=== PATIENT | male | born 1960 | race Caucasian/White ===

== ENCOUNTER 2022-10-06 08:07 | Inpatient (IN) ==
[2022-10-06] MEDS ORDERED: hydrALAZINE HCL 20 MG/ML VIAL IV STA ×2 (08:29→08:46)
[2022-10-06] MEDS ORDERED: OPTIRAY 320 125ml IV ONE (08:30)
[2022-10-06 08:37] LABS: Basophils # (auto) 0.05 K/uL (0-0.2); Basophils % (auto) 0.8 %; Eosinophils # (auto) 0.33 K/uL (0-0.50); Eosinophils % (auto) 5.3 %; Hematocrit (blood only) 38.7 % (42.0-52.0); Hemoglobin 12.7 g/dl (14.0-18.0); Immature Granulocytes # (auto) 0.01 K/uL (0.01-0.20); Immature Granulocytes % (auto) 0.2 %; Lymphocytes # (auto) 2.66 K/uL (1.2-3.4); Lymphocytes % (auto) 42.5 %; Mean Corpuscular Hgb Conc 32.8 g/dL (32.0-36.0); Mean Corpuscular Volume 85.4 fL (80.0-100.0); Mean Platelet Volume 11.4 fL (9.4-12.4); Monocytes # (auto) 0.39 K/uL (0.11-0.59); Monocytes % (auto) 6.2 %; Neutrophils # (auto) 2.82 K/uL (1.40-6.50); Platelet Count 196 K/uL (130-400); RDW Coefficient of Variation 12.4 % (11.5-14.5); RDW Standard Deviation 38.4 fL (36.4-46.3); Red Blood Count 4.53 M/uL (4.70-6.10); White Blood Count 6.26 K/ul (4.8-10.8)
--- NOTE | 2022-10-06 08:37 | Emergency Department Note ---
Impression & Plan HTN (hypertension), Stroke-like symptoms, Hypomagnesemia ED Provider Note ED Provider Note NAME: MYRNA [id number] NELLY AGE:62 SEX: Male : 1960 ARRIVES VIA: EMS INFORMANT: EMS, staff from facility ED PROVIDER(s): Breanna George DO CHIEF COMPLAINT: Stroke HPI: This is a 62-year-old male who presents via EMS due to concern for abrupt onset of strokelike symptoms this morning at 7 AM as witnessed by staff at the [facility] facility locally. They state patient appeared normal when he went into the bathroom at 7 AM and when he came back out he had right-sided weakness, facial droop, and slurred speech. Patient is primarily Bulgarian-speaking. Patient does have a history of hypertension and diabetes per the initial report. EMS reported initial blood sugar was mildly elevated and patient did indeed have strokelike symptoms. He was also noted to be hypertensive in route with a systolic of 187. EMS also reported patient was intermittently bradycardic. Med list accompanying the patient shows low-dose aspirin, no other anticoagulation. PAST MEDICAL HISTORY:See Below PAST SURGICAL HISTORY:See Below FAMILY HISTORY:See Below SOCIAL HISTORY:See Below HOME MEDICATIONS:See Below ALLERGIES:See Below VITALS:See Below PHYSICAL EXAMINATION: GENERAL: alert, well appearing, well nourished, no distress, non-toxic EYE EXAM: normal conjunctiva, PERRL and EOM's grossly intact OROPHARYNX: no exudate, no erythema, lips, buccal mucosa, and tongue normal and mucous membranes are moist NECK: supple, no nuchal rigidity, no adenopathy, non-tender LUNGS: Clear to auscultation. Normal chest wall mechanics, no w/r/r HEART: no murmurs, S1 normal and S2 normal ABDOMEN: abdomen soft, non-tender, normo-active bowel sounds, no masses, no rebound or guarding. BACK: Back is symmetrical on inspection and there is no deformity, no midline tenderness, no CVA tenderness. SKIN: no rashes, petechiae, orbruising UPPER EXTREMITIES: upper extremities are grossly normal. FROM, nml pulses b/l. LOWER EXTREMITIES: No pitting edema. FROM, nml pulses b/l. NEURO EXAM: Normal sensorium, cranial nerves II-XII grossly intact, normal speech, left facial droop,no movement of RUE and RLE. Gross sensation intact. No ataxia. NIHSS 7 Vital Signs: reviewed and remarkable Differential Diagnosis: Differential Diagnosis includes but is not limited to ischemic Stroke, hemorrhagic stroke, bells palsy, mass, neoplasm, migraine headache, seizure, subarachnoid hemorrhage, TIA, and transient global amnesia. MEDICAL DECISION MAKING: This is a 62-year-old male brought in by EMS who was made a stroke alert. Patient went urgently to CT. He was afebrile and noted to be markedly hypertensive. I discussed the case with the on-call [place] teleneurologist. We also utilized the iPad certified pest control technician as patient was Bulgarian-speaking only. Labs are drawn and sent, IV established, EKG performed interpreted me at bedside, patient monitored on telemetry. He was given IV hydralazine for his hypertension given his mild bradycardia additionally. Patient evaluated by stroke neurologist at bedside and after lengthy evaluation decision made to not give the patient TNK as he did not feel there was a clear acute onset of symptoms and patient was still hypertensive after 2 doses of hydralazine. Patient's symptoms were also improving since his arrival here. They recommended additional inpatient evaluation and management. Case discussed with the hospitalist. Consultation(s): 0815: Discussed with Dr. Brewer, [place] tele neuro. 0912: Discussed with Dr. Brewer. No TNK. Needs admitted for stroke and p ossible seizure work up. Symptoms seem to be improving. He states patient reported prior similar episode evaluated previously and chronic weakness which was worse recently even before this morning at 7 AM. Blood pressure continues to be elevated >180/100 additionally. 1005: DIscussed with CALISTA Lu, [facility] hospitalist service. ER Treatment Provided: See below 0832: IV hydralazine added due to persistent bradycardia and hypertension. Patient now is using his right side somewhat although still appears weak compared to the left. 0847: Patient still with elevated blood pressure after IV hydralazine. Currently being evaluated by [place] neurology via stroke cart. Diagnostics Interpreted By Me: -ECG: Sinus bradycardia at 55, normal axis, normal intervals, no acute ST/T wave changes -Cardiac Monitoring: An order was placed for continuous cardiac monitoring. The monitor shows a rate of 59 with sinus bradycardia rhythm. -Laboratory studies: As stated above and show below. -Imaging studies: X-ray Chest: A single view study of the chest was reviewed and was negative for cardiomegaly, focal infiltrate, effusion, pulmonary edema, or wide mediastinum. Triage Nursing Note Reviewed Prior/Outside Records Reviewed -med list Procedures: [] Critical Care: Critical care of 43 min performed to assess and manage high likelihood of life- threatening CVA, involving labs and imaging performed with assessment to evaluate strokelike symptoms and hypertension diagnosis with frequent reassessment. This time includes bedside time, treatment discussions with patient/family/consultants, documentation time and excludes procedure time. Past Med/Surg History Medical History (Updated 10/06/22 @ 16:49 by Breanna George DO) DMII (diabetes mellitus, type 2) HLD (hyperlipidemia) HTN (hypertension) Stroke Vision abnormalities Social History Smoking Status: Unknown if ever smoked Hx Alcohol Use: No Hx Substance Use: No Preferred Language: Miller Supervisor Required: Yes Beliefs That Will Affect Care: None Current Living Situation: Other Current Living Situation Comment: Inmate, [facility] Feels Safe at Home: Yes Allergies Allergies Allergy/AdvReac Type Severity Reaction Status Date / Time No Known Allergies Allergy Unverified 10/06/22 09:38 Home Meds Home Medications Medication Instructions Recorded Confirmed Aspirin Low-Strength 81 mg PO DAILY 10/06/22 10/06/22 amlodipine 2.5 mg tablet (Norvasc) 2.5 mg PO DAILY 10/06/22 10/06/22 clotrimazole 1 % topical cream 1 applic topical BID 10/06/22 10/06/22 (Lotrimin AF (clotrimazole)) enalapril maleate 10 mg tablet 10 mg PO DAILY 10/06/22 10/06/22 (Vasotec) metformin 1,000 mg tablet 1,000 mg PO BID 10/06/22 10/06/22 simvastatin 20 mg tablet (Zocor) 30 mg PO HS 10/06/22 10/06/22 Results & Data (ED) Vital Signs Vital Signs - 24 hr 10/06/22 08:15 10/06/22 08:54 10/06/22 08:29 Temperature 37.1 C Temperature Source Oral Pulse Rate 53 L 55 L 57 L Pulse Rate [Apical] Pulse Rate from SpO2 Sensor 54 L Pulse Rhythm Regular Pulse Strength Normal Respiratory Rate 20 20 Respiratory Effort / Characteristics Non-Labored Spontaneous Respiratory Depth Normal Respiratory Pattern Regular Blood Pressure 187/110 H Blood Pressure [Right Arm] Blood Pressure Mean 135 Blood Pressure Mean [Right Arm] Pulse Oximetry 99 98 Oxygen Delivery Method Room Air Sepsis Recent Fever Within 48 Hours No Sepsis New/Unexplained Change in Mental Status No Sepsis Action Taken by Nursing No Action Required 10/06/22 08:40 10/06/22 09:01 10/06/22 09:14 Temperature Temperature Source Pulse Rate 56 L 59 L Pulse Rate [Apical] Pulse Rate from SpO2 Sensor 58 L 60 Pulse Rhythm Pulse Strength Respiratory Rate 20 16 Respiratory Effort / Characteristics Respiratory Depth Respiratory Pattern Blood Pressure 199/90 H 223/86 H Blood Pressure [Right Arm] 155/82 H Blood Pressure Mean 126 131 Blood Pressure Mean [Right Arm] 106 Pulse Oximetry 98 99 Oxygen Delivery Method Sepsis Recent Fever Within 48 Hours Sepsis New/Unexplained Change in Mental Status Sepsis Action Taken by Nursing 10/06/22 10:15 Temperature Temperature Source Pulse Rate Pulse Rate [Apical] 72 Pulse Rate from SpO2 Sensor Pulse Rhythm Pulse Strength Respiratory Rate 20 Respiratory Effort / Characteristics Non-Labored Respiratory Depth Normal Respiratory Pattern Blood Pressure Blood Pressure [Right Arm] 148/82 H Blood Pressure Mean Blood Pressure Mean [Right Arm] 104 Pulse Oximetry 99 Oxygen Delivery Method Room Air Sepsis Recent Fever Within 48 Hours Sepsis New/Unexplained Change in Mental Status Sepsis Action Taken by Nursing Laboratory Data 10/06/22 08:24 10/06/22 08:24 Lab Results 10/06/22 10/06/22 10/06/22 Range/Units 08:24 08:24 08:24 WBC 6.26 (4.8-10.8) K/ul RBC 4.53 L (4.70-6.10) M/uL Hgb 12.7 L (14.0-18.0) g/dl Hct 38.7 L (42.0-52.0) % MCV 85.4 (80.0-100.0) fL MCH 28.0 (25.0-34.0) pg MCHC 32.8 (32.0-36.0) g/dL RDW Std Deviation 38.4 (36.4-46.3) fL RDW Coeff of Marjorie 12.4 (11.5-14.5) % Plt Count 196 (130-400) K/uL MPV 11.4 (9.4-12.4) fL Immature Gran % (Auto) 0.2 % Neut % (Auto) 45.0 % Lymph % (Auto) 42.5 % Kay % (Auto) 6.2 % Eos % (Auto) 5.3 % Baso % (Auto) 0.8 % Neut # (Auto) 2.82 (1.40-6.50) K/uL Lymph # (Auto) 2.66 (1.2-3.4) K/uL Kay # (Auto) 0.39 (0.11-0.59) K/uL Eos # (Auto) 0.33 (0-0.50) K/uL Baso # (Auto) 0.05 (0-0.2) K/uL Immature Gran # (Auto) 0.01 (0.01-0.20) K/uL PT 11.2 (9.0-12.0) Seconds INR 1.0 (0.9-1.1) APTT 28.2 (21.0-31.0) Seconds PTT Ratio 1.0 Sodium 134 L (136-145) mmol/L Potassium 4.1 (3.5-5.1) mmol/L Chloride 102 (98-107) mmol/L Carbon Dioxide 28 (21-32) mmol/L Anion Gap 4 (3-11) BUN 13 (6-23) mg/dl Creatinine 1.05 (0.6-1.4) mg/dl Est Cr Clr Drug Dosing Not Reportable Est GFR ( Amer) 89.0 ml/min Est GFR (Non-Af Amer) 76.8 ml/min BUN/Creatinine Ratio 12.4 (10-20) Glucose 201 H (70-99(Fasting)) mg/dl POC Glucose (70-99) mg/dl Calcium 8.3 L (8.6-10.3) mg/dl Magnesium 1.5 L (1.7-2.4) mg/dl Total Bilirubin 0.3 (0.2-1.0) mg/dl AST 12 L (13-39) U/L ALT 13 (7-52) U/L Alkaline Phosphatase 27 L (34-104) U/L Troponin I High Sens 6.1 (0-20) pg/ml Total Protein 6.1 (6.0-8.3) gm/dl Albumin 3.7 (3.4-5.0) gm/dl Globulin 2.4 L (2.5-4.0) gm/dl Albumin/Globulin Ratio 1.5 (0.9-2) SARS-CoV-2, RNA, NAAT (NEGATIVE) 10/06/22 10/06/22 Range/Units 08:46 09:56 WBC (4.8-10.8) K/ul RBC (4.70-6.10) M/uL Hgb (14.0-18.0) g/dl Hct (42.0-52.0) % MCV (80.0-100.0) fL MCH (25.0-34.0) pg MCHC (32.0-36.0) g/dL RDW Std Deviation (36.4-46.3) fL RDW Coeff of Marjorie (11.5-14.5) % Plt Count (130-400) K/uL MPV (9.4-12.4) fL Immature Gran % (Auto) % Neut % (Auto) % Lymph % (Auto) % Kay % (Auto) % Eos % (Auto) % Baso % (Auto) % Neut # (Auto) (1.40-6.50) K/uL Lymph # (Auto) (1.2-3.4) K/uL Kay # (Auto) (0.11-0.59) K/uL Eos # (Auto) (0-0.50) K/uL Baso # (Auto) (0-0.2) K/uL Immature Gran # (Auto) (0.01-0.20) K/uL PT (9.0-12.0) Seconds INR (0.9-1.1) APTT (21.0-31.0) Seconds PTT Ratio Sodium (136-145) mmol/L Potassium (3.5-5.1) mmol/L Chloride (98-107) mmol/L Carbon Dioxide (21-32) mmol/L Anion Gap (3-11) BUN (6-23) mg/dl Creatinine (0.6-1.4) mg/dl Est Cr Clr Drug Dosing Est GFR ( Amer) ml/min Est GFR (Non-Af Amer) ml/min BUN/Creatinine Ratio (10-20) Glucose (70-99(Fasting)) mg/dl POC Glucose 166 H (70-99) mg/dl Calcium (8.6-10.3) mg/dl Magnesium (1.7-2.4) mg/dl Total Bilirubin (0.2-1.0) mg/dl AST (13-39) U/L ALT (7-52) U/L Alkaline Phosphatase (34-104) U/L Troponin I High Sens (0-20) pg/ml Total Protein (6.0-8.3) gm/dl Albumin (3.4-5.0) gm/dl Globulin (2.5-4.0) gm/dl Albumin/Globulin Ratio (0.9-2) SARS-CoV-2, RNA, NAAT NEGATIVE (NEGATIVE) Administered Medications Heparin Sodium (Porcine) (Heparin Sod 5,000 Unit/0.5 Ml Vial) 5,000 units SQ Q8 KENZIE Stop: 11/05/22 13:59 Last Admin: 10/06/22 13:04 Dose: 5,000 units Documented By: CHARLENE Sodium Chloride (Nss 1000ml) 1,000 mls @ 125 mls/hr IV .Q8H KENZIE Stop: 11/05/22 08:29 Last Admin: 10/06/22 09:15 Dose: 125 mls/hr Documented By: DENG Insulin Aspart (Insulin Aspart Per Unit Charge) 0 units SC ACHS KENZIE Stop: 11/05/22 11:29 Last Admin: 10/06/22 13:03 Dose: 2 units Documented By: CHARLENE Co-signed By: KIMBERLYN Discontinued Medications Hydralazine HCl (Hydralazine Hcl 20 Mg/Ml Vial) 10 mg IV NOW STA Stop: 10/06/22 08:30 Last Admin: 10/06/22 08:30 Dose: 10 mg Documented By: DENG Hydralazine HCl (Hydralazine Hcl 20 Mg/Ml Vial) 10 mg IV NOW STA Stop: 10/06/22 08:47 Last Admin: 10/06/22 09:00 Dose: 10 mg Documented By: DENG Magnesium Sulfate/Dextrose (Magnesium Sulfate / D5w) 1 gm in 100 mls @ 50 mls/hr IV Q2H KENZIE Stop: 10/06/22 15:59 Last Admin: 10/06/22 14:41 Dose: 50 mls/hr Documented By: Infusion: 10/06/22 14:39 Dose: 0 mls/hr Documented By: Admin: 10/06/22 12:49 Dose: 50 mls/hr Documented By: Infusion: 10/06/22 12:49 Dose: 0 mls/hr Documented By: Admin: 10/06/22 11:42 Dose: 50 mls/hr Documented By: KTElsa Admin: 10/06/22 11:08 Dose: Not Given Documented By: DIAMANTE Ioversol (Optiray 320 125ml) 119 ml IV ONCE ONE Stop: 10/06/22 08:31 Last Admin: 10/06/22 08:17 Dose: 119 ml Documented By: BRKrystin Magnesium Sulfate/Dextrose (Magnesium Sulfate 1gm / D5w Bag) Confirm Administered Dose 1 gm IV .STK-MED ONE Stop: 10/06/22 10:33 Last Admin: 10/06/22 10:33 Dose: 1 gm Documented By: DIAMANTE Imaging Data Radiologist's Impression: Chest X-Ray 10/06/22 08:11 XR chest 1V portable CLINICAL HISTORY: neuro deficit, acute stroke suspected COMPARISON STUDY: No previous studies for comparison. FINDINGS: Lung volumes are mildly diminished. There is no pneumothorax or pleural effusion. Mild bibasilar opacities favor atelectasis. There is mild cardiomegaly without evidence for pulmonary edema. IMPRESSION: 1. Low lung volumes with mild bibasilar opacities suggestive of atelectasis. 2. Mild cardiomegaly. ACT 112: Negative or not required by law. Electronically signed by: José Montejo M.D. 10/06/2022 8:[address] 10/06/22 08:[address] DOSE: HISTORY: Right-sided weakness. neuro deficit, acute stroke suspected TECHNIQUE: Multiaxial CT images of the head were performed without the use of intravenous contrast. Automated exposure control was utilized for this study. A dose lowering technique was utilized adhering to the principles of ALARA. Comparison: None. Findings: Mild mucosal thickening within the ethmoid air cells, right sphenoid sinus, and right maxillary sinus. No fluid levels within the paranasal sinuses. The mastoid air cells are clear. The calvarium and skull base are intact. The ventricles and sulci are within normal limits. There is no mass, hematoma, midline shift, or acute infarct. Impression: No acute intracranial abnormality. ACT 112: Negative or not required by law. Electronically signed by: William Butt M.D. 10/06/2022 8:54 AM Head CTA 10/06/22 08:11 HEAD CTA HISTORY: Right-sided weakness. neuro deficit, acute stroke suspected TECHNIQUE: Multiaxial CT images of the head were performed following the intravenous administration of contrast to evaluate the major cerebral vessels. Maximum intensity projection images were also obtained. A dose lowering technique was utilized adhering to the principles of ALARA. COMPARISON: None. FINDINGS: There is no mass, hematoma, midline shift, or acute infarct. Visualized intracranial internal carotid arteries, distal vertebral arteries, and basilar artery are widely patent. There is no significant stenosis, occlusion, or aneurysm seen within the bilateral ACAs, MCAs, or disability manager. IMPRESSION: No significant stenosis, occlusion, or aneurysm within the [place] of [place]. ACT 112: Negative or not required by law. Electronically signed by: William Butt M.D. 10/06/2022 8:59 AM Neck CTA 10/06/22 08:11 CT ANGIOGRAPHY OF THE NECK WITH CONTRAST CLINICAL HISTORY: neuro deficit, acute stroke suspected. Right-sided weakness. COMPARISON STUDY: No previous studies for comparison. Technique: CT angiography of the carotid and vertebral arteries was obtained using Optiray and 3D reconstruction on an independent workstation. NASCET criteria was utilized. Automated exposure control was utilized for the study. A dose lowering technique was utilized adhering to the principles of ALARA. CT DOSE: 1115.03 mGy.cm Findings: Visualized portions of the lung apices are unremarkable. There is no cervical lymphadenopathy. There is no cervical spine fracture. The bilateral common carotid, cervical internal carotid and vertebral arteries are patent. There is no stenosis or dissection within these vessels. Mild irregularity of the proximal bilateral internal carotid arteries is likely due to a therosclerosis. There is no aneurysm within the neck. CTA of the head will be reported separately. IMPRESSION: No stenosis or dissection within the bilateral common carotid, cervical internal carotid and vertebral arteries. ACT 112: Negative or not required by law. Electronically signed by: José Montejo M.D. 10/06/2022 8:49 AM Discharge Plan Visit Data Chief Complaint: Stroke Alert Stated Complaint: STROKE SX ED Provider: Breanna George Discharge Problem: HTN (hypertension), Stroke-like symptoms, Hypomagnesemia Patient Disposition: Admitted As Inpatient Discharge Instructions Interventions: ED Discharge Assessment Last Done: 10/06/22 11:09
--- NOTE | 2022-10-06 08:40 | XRay Report ---
XR chest 1V portable CLINICAL HISTORY: neuro deficit, acute stroke suspected COMPARISON STUDY: No previous studies for comparison. FINDINGS: Lung volumes are mildly diminished. There is no pneumothorax or pleural effusion. Mild biba silar opacities favor atelectasis. There is mild cardiomegaly without evidence for pulmonary edema. IMPRESSION: 1. Low lung volumes with mild bibasilar opacities suggestive of atelectasis. 2. Mild cardiomegaly. ACT 112: Negative or not required by law. Electronically signed by: José Montejo M.D. 10/06/2022 8:39 AM
--- NOTE | 2022-10-06 08:51 | CT Scan Report ---
CT ANGIOGRAPHY OF THE NECK WITH CONTRAST CLINICAL HISTORY: neuro deficit, acute stroke suspected. Right-sided weakness. COMPARISON STUDY: No previous studies for comparison. Technique: CT angiography of the carotid and vertebral arteries was obtained using Optiray and 3D rec onstruction on an independent workstation. NASCET criteria was utilized. Automated exposure control was utilized for the study. A dose lowering technique was utilized adhering to the principles of ALA RA. CT DOSE: 1115.03 mGy.cm Findings: Visualized portions of the lung apices are unremarkable. There is no cervical lymphadenopat hy. There is no cervical spine fracture. The bilateral common carotid, cervical internal carotid and vertebral arteries are patent. There is no stenosis or dissection within these vessels. Mild irregula rity of the proximal bilateral internal carotid arteries is likely due to atherosclerosis. There is n o aneurysm within the neck. CTA of the head will be reported separately. IMPRESSION: No stenosis or dissection within the bilateral common carotid, cervical internal carotid and vertebral arteries. ACT 112: Negative or not required by law. Electronically signed by: José Montejo M.D. 10/06/2022 8:49 AM
--- NOTE | 2022-10-06 08:55 | CT Scan Report ---
HEAD CT NONCONTRAST CT DOSE: HISTORY: Right-sided weakness. neuro deficit, acute stroke suspected TECHNIQUE: Multiaxial CT images of the head were performed without the use of intravenous contrast. A utomated exposure control was utilized for this study. A dose lowering technique was utilized adheri ng to the principles of ALARA. Comparison: None. Findings: Mild mucosal thickening within the ethmoid air cells, right sphenoid sinus, and right maxil darin sinus. No fluid levels within the paranasal sinuses. The mastoid air cells are clear. The calvar ium and skull base are intact. The ventricles and sulci are within normal limits. There is no mass, h ematoma, midline shift, or acute infarct. Impression: No acute intracranial abnormality. ACT 112: Negative or not required by law. Electronically signed by: William Butt M.D. 10/06/2022 8:54 AM
[2022-10-06 08:59] LABS: Alanine Aminotransferase 13 U/L (7-52); Albumin Globulin Ratio 1.5 (0.9-2); Albumin Level 3.7 gm/dl (3.4-5.0); Alkaline Phosphatase 27 U/L (34-104); Anion Gap 4 (3-11); Aspartate Aminotransferase 12 U/L (13-39); BUN Creatinine Ratio 12.4 (10-20); Bilirubin,Total 0.3 mg/dl (0.2-1.0); Blood Urea Nitrogen 13 mg/dl (6-23); Calcium 8.3 mg/dl (8.6-10.3); Carbon Dioxide 28 mmol/L (21-32); Chloride 102 mmol/L (98-107); Est GFR (Non-African American) 76.8 ml/min; Globulin 2.4 gm/dl (2.5-4.0); Glucose 201 mg/dl (70-99(Fasting)); Magnesium 1.5 mg/dl (1.7-2.4); Potassium 4.1 mmol/L (3.5-5.1); Sodium 134 mmol/L (136-145); Total Protein 6.1 gm/dl (6.0-8.3)
[2022-10-06 09:00] LABS: Partial Thromboplastin Time 28.2 Seconds (21.0-31.0); Prothrombin Time 11.2 Seconds (9.0-12.0)
--- NOTE | 2022-10-06 09:01 | CT Scan Report ---
HEAD CTA HISTORY: Right-sided weakness. neuro deficit, acute stroke suspected TECHNIQUE: Multiaxial CT images of the head were performed following the intravenous administration o f contrast to evaluate the major cerebral vessels. Maximum intensity projection images were also obta ined. A dose lowering technique was utilized adhering to the principles of ALARA. COMPARISON: None. FINDINGS: There is no mass, hematoma, midline shift, or acute infarct. Visualized intracranial help desk intern al carotid arteries, distal vertebral arteries, and basilar artery are widely patent. There is no sig nificant stenosis, occlusion, or aneurysm seen within the bilateral ACAs, MCAs, or accounting lecturer. IMPRESSION: No significant stenosis, occlusion, or aneurysm within the [place]. ACT 112: Negative or not required by law. Electronically signed by: William Butt M.D. 10/06/2022 8:59 AM
[2022-10-06 09:05] LABS: Troponin I High Sensitivity 6.1 pg/ml (0-20)
[2022-10-06] MEDS: SODIUM CHLORIDE 0.9% 1000ML 1,000 ML IV SCH ×3 (09:15→20:20)
[2022-10-06] MEDS ORDERED: MAGNESIUM SULFATE 1GM / D5W BAG IV ONE (10:32)
--- NOTE | 2022-10-06 10:46 | History & Physical Report ---
Date of Service October 06, 2022 Assessment & Plan (1) Stroke-like symptoms: Plan: Acute onset with history of previous CVA reported by patient - Not a thrombolytic candidate secondary to time of onset - CT, CTA of head and neck negative for LVOT or stenosis or bleed - obtain MRI - obtain ECHO with bubble study - Permissive HTN - Telemetry overnight evaluate for dysrhythmia - Dysphagia screening and then ADAT - PT/OT consultation - Continue with ASA - For his symptoms of facial twitching and muscle weakness- will replete magnesium, obtain iCA, check TSH - Continue with neurological examinations (2) Hypomagnesemia: Plan: Replete follow other electrolytes (3) HTN (hypertension): Plan: Allow for permissive HTN await telestroke consultation recommendations - Received Hydralazine in EMD with appropriate response (4) DMII (diabetes mellitus, type 2): Plan: Insulin sliding scale - Advance diet to carb consistent once passes swallow screen - CF 20 with no carb coverage- adjust to keep BG <180 (5) HLD (hyperlipidemia): Plan: Continue statin- lipid panel in morning- adjust therapy as warranted History of Present Illness Primary Care Provider: Arnold Farooq, DO 62 YOM that is currently residing at [facility] shelter facility. He reports feeling well until last night- and even went for a run yesterday (10/05/22) Patient was brought in to the [facility] today by [facility] guards for reports of new onset right sided facial droop and right sided weakness. Patient presented to the EMD hyper tensive as well >200. Patient was stroke alerted and had CT scan of head as well as CTA of the head and neck performed. He was deemed not a candidate for TNKase secondary to time last known well. Overall the patient reports that he noticed himself becoming more weak last evening and this morning noticed his right side of his face tingling and twitching. He also notes that he had weakness and decreased sensation to his right leg. The weakness and sensation changes to his right leg and arm- he reports as starting last evening. Patient reports that he has had a stroke ~ 2 years ago and has had MRI and imaging prior. CUrrently patient is with right facial droop, right arm and right leg weakness, decreased sensation on right arm and leg, and ataxia. He has electrolyte derangements on his BMP as well. Will admit patient for continued stroke work up, treat his electrolyte disorders, obtain ECHO and follow for any seizure like activity. Patient CODE Status: FULL COVID: NEGATIVE Allergies Allergy/AdvReac Type Severity Reaction Status Date / Time No Known Allergies Allergy Unverified 10/06/22 09:38 Home Medications Medication Instructions Recorded Confirmed Type Aspirin Low-Strength 81 mg PO DAILY 10/06/22 10/06/22 History amlodipine 2.5 mg tablet (Norvasc) 2.5 mg PO DAILY 10/06/22 10/06/22 History clotrimazole 1 % topical cream 1 applic topical BID 10/06/22 10/06/22 History (Lotrimin AF (clotrimazole)) enalapril maleate 10 mg tablet 10 mg PO DAILY 10/06/22 10/06/22 History (Vasotec) metformin 1,000 mg tablet 1,000 mg PO BID 10/06/22 10/06/22 History simvastatin 20 mg tablet (Zocor) 30 mg PO HS 10/06/22 10/06/22 History Past Med/Surg History Medical History (Updated 10/06/22 @ 16:49 by Breanna George DO) DMII (diabetes mellitus, type 2) HLD (hyperlipidemia) HTN (hypertension) Stroke Vision abnormalities Social History Smoking Status: Unknown if ever smoked Hx Alcohol Use: No Hx Substance Use: No Preferred Language: Lithuanian Communication Tools: IPad Hard Hat Diver Required: Yes Beliefs That Will Affect Care: None Current Living Situation: Other Current Living Situation Comment: Inmate, [facility] Feels Safe at Home: Yes Review of Systems Review of Systems: REVIEW OF SYSTEMS: Constitutional: No fever, sweats or chills Eyes: (+) chronic blurry vision, No diplopia, no worsening ENT: normal hearing, no trouble swallowing Respiratory: No cough, sputum, dyspnea at rest or on exertion Cardiovascular: No chest pain, tightness or palpitations Abdomen: No pain, nausea, vomiting, diarrhea or constipation Musculoskeletal: No joint pain, calf pain, swelling Neurologic: (+) weakness, numbness/tingling Physical Exam Physical Exam: PHYSICAL EXAM: General: awake, alert, no apparent distress Head: Normocephalic, atraumatic Neuro: AAO x 3, speech clear and appropriate, right sided facial droop, PEERLA, peripheral vision intact, decreased sensation on right arm and leg, strength upper 5/5 bilaterally, 4/5 on lower with right leg- being weaker- however able to hold in air for 5 seconds with no drift, + ataxia with heel to coe and finger to nose- NIHSS- 4 Chest: equal rise and fall of the chest, no accessory muscle use, no heaves or thirlls, Clear to auscultation, on room air, Cardiac: Regular rate and rhythm, telemetry reviewed- NSR, skin warm dry, cap refill <3 seconds, peripheral pusles +2 no JVD, no murmur, no JVD, no edema GI: NABS x 4 quadrants, soft, nontender to palpation, no rebound, guarding or tenderness : Spontaneously voiding, no pain, no CVA tenderness, Extremities: Normal inspection, no peripheral edema or erythema, calfs nontender to palpation Psych: Normal mood and affect Skin: no rash or erythema Results & Data Results & Data Vital Signs (Past 12 Hours) Vital Signs Temp Pulse Pulse Resp BP BP Pulse Ox 10/06/22 10:15 72 20 148/82 H 99 10/06/22 09:14 155/82 H 10/06/22 09:01 59 L 16 223/86 H 99 10/06/22 08:40 56 L 20 199/90 H 98 10/06/22 08:29 57 L 20 187/110 H 98 10/06/22 08:54 55 L 10/06/22 08:15 37.1 C 53 L 20 99 O2 Del Method 10/06/22 10:15 Room Air 10/06/22 09:14 10/06/22 09:01 10/06/22 08:40 10/06/22 08:29 10/06/22 08:54 10/06/22 08:15 Room Air Laboratory Results Abnormal lab results 10/06/22 10/06/22 10/06/22 Range/Units 08:24 08:24 08:46 RBC 4.53 L (4.70-6.10) M/uL Hgb 12.7 L (14.0-18.0) g/dl Hct 38.7 L (42.0-52.0) % Sodium 134 L (136-145) mmol/L Glucose 201 H (70-99(Fasting)) mg/dl POC Glucose 166 H (70-99) mg/dl Calcium 8.3 L (8.6-10.3) mg/dl Magnesium 1.5 L (1.7-2.4) mg/dl AST 12 L (13-39) U/L Alkaline Phosphatase 27 L (34-104) U/L Globulin 2.4 L (2.5-4.0) gm/dl Diagnostic Findings Chest X-Ray 10/06/22 08:11 XR chest 1V portable CLINICAL HISTORY: neuro deficit, acute stroke suspected COMPARISON STUDY: No previous studies for comparison. FINDINGS: Lung volumes are mildly diminished. There is no pneumothorax or pleural effusion. Mild bibasilar opacities favor atelectasis. There is mild cardiomegaly without evidence for pulmonary edema. IMPRESSION: 1. Low lung volumes with mild bibasilar opacities suggestive of atelectasis. 2. Mild cardiomegaly. ACT 112: Negative or not required by law. Electronically signed by: José Montejo M.D. 10/06/2022 8:[address] 10/06/22 08:[address] DOSE: HISTORY: Right-sided weakness. neuro deficit, acute stroke suspected TECHNIQUE: Multiaxial CT images of the head were performed without the use of intravenous contrast. Automated exposure control was utilized for this study. A dose lowering technique was utilized adhering to the principles of ALARA. Comparison: None. Findings: Mild mucosal thickening within the ethmoid air cells, right sphenoid sinus, and right maxillary sinus. No fluid levels within the paranasal sinuses. The mastoid air cells are clear. The calvarium and skull base are intact. The ventricles and sulci are within normal limits. There is no mass, hematoma, midline shift, or acute infarct. Impression: No acute intracranial abnormality. ACT 112: Negative or not required by law. Electronically signed by: William Butt M.D. 10/06/2022 8:54 AM Head CTA 10/06/22 08:11 HEAD CTA HISTORY: Right-sided weakness. neuro deficit, acute stroke suspected TECHNIQUE: Multiaxial CT images of the head were performed following the intravenous administration of contrast to evaluate the major cerebral vessels. Maximum intensity projection images were also obtained. A dose lowering technique was utilized adhering to the principles of ALARA. COMPARISON: None. FINDINGS: There is no mass, hematoma, midline shift, or acute infarct. Visualized intracranial internal carotid arteries, distal vertebral arteries, and basilar artery are widely patent. There is no significant stenosis, occlusion, or aneurysm seen within the bilateral ACAs, MCAs, or director of midwifery/staff midwife. IMPRESSION: No significant stenosis, occlusion, or aneurysm within the [place]. ACT 112: Negative or not required by law. Electronically signed by: William Butt M.D. 10/06/2022 8:59 AM Neck CTA 10/06/22 08:11 CT ANGIOGRAPHY OF THE NECK WITH CONTRAST CLINICAL HISTORY: neuro deficit, acute stroke suspected. Right-sided weakness. COMPARISON STUDY: No previous studies for comparison. Technique: CT angiography of the carotid and vertebral arteries was obtained using Optiray and 3D reconstruction on an independent workstation. NASCET criteria was utilized. Automated exposure control was utilized for the study. A dose lowering technique was utilized adhering to the principles of ALARA. CT DOSE: 1115.03 mGy.cm Findings: Visualized portions of the lung apices are unremarkable. There is no cervical lymphadenopathy. There is no cervical spine fracture. The bilateral common carotid, cervical internal carotid and vertebral arteries are patent. There is no stenosis or dissection within these vessels. Mild irregularity of the proximal bilateral internal carotid arteries is likely due to atherosclerosis. There is no aneurysm within the neck. CTA of the head will be reported separately. IMPRESSION: No stenosis or dissection within the bilateral common carotid, cervical internal carotid and vertebral arteries. ACT 112: Negative or not required by law. Electronically signed by: José Montejo M.D. 10/06/2022 8:49 AM Medications Administered Home Medications Aspirin Low-Strength 81 mg PO DAILY 10/06/22 [History Confirmed 10/06/22] amlodipine 2.5 mg tablet (Norvasc) 2.5 mg PO DAILY 10/06/22 [History Confirmed 10/06/22] clotrimazole 1 % topical cream (Lotrimin AF (clotrimazole)) 1 applic topical BID 10/06/22 [History Confirmed 10/06/22] enalapril maleate 10 mg tablet (Vasotec) 10 mg PO DAILY 10/06/22 [History Confirmed 10/06/22] metformin 1,000 mg tablet 1,000 mg PO BID 10/06/22 [History Confirmed 10/06/22] simvastatin 20 mg tablet (Zocor) 30 mg PO HS 10/06/22 [History Confirmed 10/06/22] Active Medications Sodium Chloride (Nss 1000ml) 1,000 mls @ 125 mls/hr IV .Q8H KENZIE Stop: 11/05/22 08:29 Last Admin: 10/06/22 09:15 Dose: 125 mls/hr Magnesium Sulfate/Dextrose (Magnesium Sulfate / D5w) 1 gm in 100 mls @ 50 mls/hr IV Q2H KENZIE Stop: 10/06/22 15:59 Sodium Chloride (Nss 1000ml) 1,000 mls @ 125 mls/hr IV .Q8H KENZIE Stop: 11/05/22 08:29 Last Admin: 10/06/22 09:15 Dose: 125 mls/hr Documented By: DENG Discontinued Medications Hydralazine HCl (Hydralazine Hcl 20 Mg/Ml Vial) 10 mg IV NOW STA Stop: 10/06/22 08:30 Last Admin: 10/06/22 08:30 Dose: 10 mg Documented By: DENG Hydralazine HCl (Hydralazine Hcl 20 Mg/Ml Vial) 10 mg IV NOW STA Stop: 10/06/22 08:47 Last Admin: 10/06/22 09:00 Dose: 10 mg Documented By: DENG Ioversol (Optiray 320 125ml) 119 ml IV ONCE ONE Stop: 10/06/22 08:31 Last Admin: 10/06/22 08:17 Dose: 119 ml Documented By: KARMEN Magnesium Sulfate/Dextrose (Magnesium Sulfate 1gm / D5w Bag) Confirm Administered Dose 1 gm IV .STK-MED ONE Stop: 10/06/22 10:33 Last Admin: 10/06/22 10:33 Dose: 1 gm Documented By: ES ECG Additional Comments: Sinus bradycardia Possible Left atrial enlargement Minimal voltage criteria for LVH, may be normal variant ( Arvin product ) Septal infarct , age undetermined Abnormal ECG No previous ECGs available Code Status & VTE Plan Code Status FULL VTE Prophylaxis Plan VTE Prophylaxis will be ordered: Yes Supervising Physician Co-Signing Physician Notes I personally saw and examined the patient. I verified all leach points and agree with RABIA Coleman with the following exceptions and/or additions: 62 year old male presents to the ER with right sided weakness, facial droop and numbness. Patient seen with iPad intepretor. Symptoms now resolved when seen. On discussion of abdominal pain on exam he reports long standing gastritis for which he uses as need Pepto-Bismol. O/E A&Ox3, HS RRR, no murmurs, Chest CTAB, Abdo epigastric tenderness without guarding or rebound, CN 2-> 12 intact, no facial droop, no pronator drift, extremity weakness or change in sensation. No calf pain or swelling. A/P Stroke like symptoms - no stroke on brain MRI, possible TIA vs recrudescence of prior stroke (reportedly had same symptoms 4 months ago). Alternatively complex migraine although he has no history of migraines making this less likely. PFO/ASD noted on TTE therefore will get US venous doppler of both legs. Gastritis - epigastric pain on exam, takes regular Pepto-Bismol. Recommend start PPI. PG Care Time/CCT Total # of Minutes Spent Total Time Spent with Patient: Total time spent is greater than 50% in coordination of care (as documented) at patient's floor/unit and/or counseling patient: Coding Level of Care Code 75384 INT INP/OBS CARE 3/75MIN Diagnoses Stroke-like symptoms R29.90 Hypomagnesemia E83.42 HTN (hypertension) I10 DMII (diabetes mellitus, type 2) E11.9 HLD (hyperlipidemia) E78.5
[2022-10-06] MEDS: MAGNESIUM SULFATE / D5W 1 GM/100 ML BAG IV SCH ×4 (11:08→14:41)
[2022-10-06] MEDS ORDERED: ACETAMINOPHEN 325 MG TAB PO PRN (11:19)
[2022-10-06] MEDS ORDERED: GLUCAGON FOR INJ 1 MG VIAL SQ PRN (11:19)
[2022-10-06] MEDS ORDERED: DEXTROSE 50% 50 ML SYRINGE IV PRN (11:19)
[2022-10-06] MEDS ORDERED: CARBOHYDRATES FOR HYPOGLYCEMIA PO PRN (11:19)
[2022-10-06] MEDS ORDERED: GLUCOSE 40% GEL 15 GM TUBE PO PRN (11:19)
[2022-10-06] MEDS ORDERED: GLUCOSE 10 TAB/TUBE PO PRN (11:19)
[2022-10-06] MEDS ORDERED: PHARMACIST DISCHARGE MED REC CONSULT PRN (11:19)
[2022-10-06 11:42] LABS: Amphetamines+Metham, Urine Neg (Neg); Barbiturates, Urine Neg (Neg); Benzodiazepine, Urine Neg (Neg); Cocaine, Urine Neg (Neg); MDMA (Ecstacy), Urine Neg (Neg); Methadone, Urine Neg (Neg); Opiate, Urine Neg (Neg); Phencyclidine, Urine Neg (Neg)
[2022-10-06] MEDS: INSULIN ASPART PER UNIT CHARGE SC SCH ×3 (13:03→21:02)
[2022-10-06] MEDS: HEPARIN SOD 5,000 UNIT/0.5 ML VIAL SQ SCH ×2 (13:04→20:16)
--- NOTE | 2022-10-06 18:55 | XCELERA ---
[id number]
[2022-10-06] MEDS: CLOTRIMAZOLE 1% CR 15 GM TUBE TOP SCH (20:17)
[2022-10-06] MEDS ORDERED: SIMVASTATIN 10 MG TAB PO SCH (21:00)
--- NOTE | 2022-10-06 21:08 | Magnetic Resonance Report ---
Exam(s): MRI HEAD Without Contrast EXAM: MR Head Without Intravenous Contrast CLINICAL HISTORY: Reason for exam: stroke evaluation. TECHNIQUE: Magnetic resonance images of the head/brain without intravenous contrast in multiple planes. COMPARISON: CT head 10/06/22 FINDINGS: Brain: No diffusion restriction to suggest acute cerebral ischemia. No acute intracranial hemorrhage. No mass-effect or midline shift. Minimal scattered chronic small vessel ischemic disease. Parenchymal volume is normal for age. Ventricles: Unremarkable. No hydrocephalus. Bones/joints: Unremarkable. Sinuses: Mild pansinus mucosal thickening. No acute sinusitis. Mastoid air cells: Clear mastoid air cells. Orbits: Unremarkable as visualized. IMPRESSION: No acute findings in the head/brain. Electronically signed by: Benito Coyne M.D. 10/06/22 21:07 PM
[2022-10-06] MEDS: PANTOprazole 40 MG TAB PO SCH (22:19)
--- NOTE | 2022-10-07 02:04 | Ultrasound Report ---
Exam(s): US VENOUS BILATERAL LOWER EXTREMITIES EXAM: US Duplex Bilateral Lower Extremities Veins CLINICAL HISTORY: Reason for exam: CVA with PFO. TECHNIQUE: Real-time duplex ultrasound scan of the bilateral lower extremity veins integrating B-mode two-dimensional vascular structure, Doppler spectral analysis, color flow Doppler imaging and compression. COMPARISON: No relevant prior studies available. FINDINGS: Right deep veins: Unremarkable. No DVT in the right common femoral, femoral, proximal deep femoral or popliteal veins. The veins demonstrate normal color flow, are normally compressible, with normal phasic flow and/or augmentation response. Right superficial veins: Unremarkable. No thrombus in the visualized right great saphenous vein. Left deep veins: Unremarkable. No DVT in the left common femoral, femoral, proximal deep femoral or popliteal veins. The veins demonstrate normal color flow, are normally compressible, with normal phasic flow and/or augmentation response. Left superficial veins: Unremarkable. No thrombus in the visualized left great saphenous vein. Soft tissues: No acute findings. IMPRESSION: No evidence of acute DVT. Electronically signed by: Benito Coyne M.D. 10/07/22 02:03 AM
[2022-10-07] MEDS: HEPARIN SOD 5,000 UNIT/0.5 ML VIAL SQ SCH ×2 (06:11→13:07)
[2022-10-07 06:54] LABS: Basophils # (auto) 0.06 K/uL (0-0.2); Eosinophils # (auto) 0.31 K/uL (0-0.50); Hematocrit (blood only) 40.5 % (42.0-52.0); Hemoglobin 13.5 g/dl (14.0-18.0); Immature Granulocytes # (auto) 0.02 K/uL (0.01-0.20); Immature Granulocytes % (auto) 0.3 %; Lymphocytes # (auto) 2.35 K/uL (1.2-3.4); Mean Corpuscular Hgb Conc 33.3 g/dL (32.0-36.0); Mean Corpuscular Volume 83.9 fL (80.0-100.0); Mean Platelet Volume 11.5 fL (9.4-12.4); Monocytes # (auto) 0.31 K/uL (0.11-0.59); Neutrophils # (auto) 3.14 K/uL (1.40-6.50); Neutrophils % (auto) 50.7 %; Platelet Count 213 K/uL (130-400); RDW Coefficient of Variation 12.4 % (11.5-14.5); RDW Standard Deviation 37.6 fL (36.4-46.3); Red Blood Count 4.83 M/uL (4.70-6.10); White Blood Count 6.19 K/ul (4.8-10.8)
[2022-10-07 07:17] LABS: BUN Creatinine Ratio 10.9 (10-20); Calcium 8.2 mg/dl (8.6-10.3); Chol HDL Ratio 3.1 (0-5); Creatinine Clr Calc Pharmacy 79.3 ml/min; Est GFR (African American) 104.4 ml/min; Est GFR (Non-African American) 90.1 ml/min; Phosphorus 3.5 mg/dl (2.5-4.9); Potassium 3.6 mmol/L (3.5-5.1)
[2022-10-07] MEDS: CLOTRIMAZOLE 1% CR 15 GM TUBE TOP SCH (08:31)
[2022-10-07] MEDS: PANTOprazole 40 MG TAB PO SCH (08:31)
[2022-10-07] MEDS: INSULIN ASPART PER UNIT CHARGE SC SCH ×3 (08:32→16:38)
[2022-10-07] MEDS ORDERED: ASPIRIN 81 MG ECTAB PO SCH (09:00)
--- NOTE | 2022-10-07 10:14 | Neurology Consultation ---
Date of Consultation October 07, 2022 Assessment & Plan (1) Stroke-like symptoms: (2) HTN (hypertension): (3) Hypomagnesemia: Plan patient had an episode of right-sided weakness of a significant degree, with no evidence of stroke on CT or MRI. Neurologic examination currently is nonfocal without meningeal signs or obvious cephalopathy. NIH Stroke Scale equals 0 He had significant hypertension on admission as well as some hypomagnesemia and hypocalcemia. These types of abnormalities can be associated with transient focal neurologic deficits. Therefore the history is consistent with a TIA in association with significant hypertension. Echocardiogram had a right to left shunt ( ASD versus PFO). The patient does have mild old small vessel ischemic disease with multiple risk factors for stroke including hypertension, diabetes, tobacco use, and a history of dyslipidemia. Currently, however, his lipid profile parameters are normal. Recommendations: 1. Control blood pressure as you are doing keeping mean arterial pressure somewhere around 95-100. 2. discontinue 81 mg aspirin and initiate 75 mg clopidogrel daily. 3. cardiology decide if anything further needs to be done about the echocardiogram finding ( PFO versus ASD). there is no indication for anticoagul ation from a neurologic standpoint. 4. keep simvastatin 30 mg daily. Overall, I spent a total of 75 minutes with the case including review of records, review of CT and MRI films, report generation, direct evaluation the patient at bedside, and discussing the case with the patient and RN at bedside, and Dr. Maurer including differential diagnosis and treatment options. History of Present Illness Reason for Consultation: Patient is a 62 year old who I was asked to see at the request of Dr. Maurer, for neurologic consultation regarding probable TIA. Requesting Physician: Dr. Maurer Attending Physician: David Maurer History of Present Illness Patient speaks no Telugu and I had to use a translating service for the entire history and physical. He has a history of hypertension and diabetes for many years. He denies tobacco or alcohol use. Patient tells me that 2 years ago he had an episode of right-sided weakness including face arm and leg and up in the hospital "for 2 months". He got better and he has been on 81 mg aspirin tablet since. He claims that over the last week he has had intermittent right-sided weakness. On October 06 early in the morning he went to the bathroom and was witnessed to have a right facial droop and right arm and leg weakness. He was brought to the emergency room October 06 at 8:15 a.m. the temperature 37.1, pulse of 53, respiratory rate 20, blood pressure 187/110, and O2 saturation 99%. He had significant weakness on the right side including face arm and leg with an NIH stroke scale of 7 but his symptoms rapidly improved. After tele consultation with [facility] tPA was not given. CBC showed a mild anemia. Chem profile revealed a glucose of 201. Magnesium was low at 1.5 and calcium was low at 8.3. TSH was normal at 1.4. CT scan of the head was unremarkable. CT angiography of the head and neck were unremarkable with no vascular anomalies or stenoses. MRI of the brain showed no acute stroke. There was mild cold scattered small vessel ischemic disease and a nonspecific nature. Echocardiogram revealed a right to left shunt consistent with PFO versus ASD. Ultrasound showed no DVT in the legs bilaterally This morning the patient feels strong without any issues. he has no pain or headache. Labs today revealed CBC and Chem profile which were unremarkable except for glucose of 200 for a calcium of 8.2. Triglyceride was 102 and total cholesterol was 137. blood pressure this morning was 123/79 with a pulse of 44. He remains afebrile. Allergies Allergy/AdvReac Type Severity Reaction Status Date / Time No Known Allergies Allergy Unverified 10/06/22 09:38 Home Medications Medication Instructions Recorded Confirmed Type Aspirin Low-Strength 81 mg PO DAILY 10/06/22 10/06/22 History amlodipine 2.5 mg tablet (Norvasc) 2.5 mg PO DAILY 10/06/22 10/06/22 History clotrimazole 1 % topical cream 1 applic topical BID 10/06/22 10/06/22 History (Lotrimin AF (clotrimazole)) enalapril maleate 10 mg tablet 10 mg PO DAILY 10/06/22 10/06/22 History (Vasotec) metformin 1,000 mg tablet 1,000 mg PO BID 10/06/22 10/06/22 History simvastatin 20 mg tablet (Zocor) 30 mg PO HS 10/06/22 10/06/22 History Patient History Medical History DMII (diabetes mellitus, type 2) HLD (hyperlipidemia) HTN (hypertension) Stroke Vision abnormalities Social History (Updated 10/07/22 @ 10:36 by Yuniel Berg MD) Smoking Status: Never smoker Hx Alcohol Use: No Hx Substance Use: No Preferred Language: Yakut Communication Ability: Effective Communication Tools: IPad Roll Mill Operator Required: Yes Beliefs That Will Affect Care: None Current Living Situation: Other Current Living Situation Comment: Inmate, [facility] current occupational status: retired 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 Feels Safe at Home: Yes Assistive Devices: None Review of Systems Constitutional: no fever, no fatigue and no weakness Eyes: + worsening vision ( chronic bilateral blurry vision); no diplopia and no eye pain Ear, Nose, Mouth, Throat: no ear pain, no tinnitus, no hearing loss, no dizziness, no snoring, no hoarseness and no dysphagia Respiratory: no cough and no dyspnea Cardiovascular: no chest pain, no palpitations and no lightheadedness Gastrointestinal: no abdominal pain, no nausea and no vomiting Musculoskeletal: no back pain, no neck pain, no radicular pain, no joint pain and no myalgia Integumentary: no rash and no lesions Neurologic: no gait abnormality, no localized weakness, no generalized weakness, no tingling, no numbness, no tremor(s), no abnormal movements, no headache(s), no abnormal speech, no confusion and no memory loss Psychiatric: no depression, no irritability, no anxiety, no difficulty concentrating, no confusion and no hallucinations Endocrine: no fatigue and no flushing Hematologic / Lymphatic: no easy bleeding and no easy bruising Allergy / Immunological: no urticaria and no problem reported Exam (Neuro) Physical Exam: The patient is right-handed. The patient is awake, alert, and attentive. Speech is normal without any aphasia or dysarthria, as far as can be ascertained. mood seems reasonable affect is appropriate. Thought processes seem intact to conversation. Pupils are 4 mm bilaterally and reactive to light. Extraocular eye muscles are intact without nystagmus. Visual acuity and visual magallon seem normal grossly to confrontation. There are no deficits to sensation in the face in all 3 distributions of the fifth cranial nerve bilaterally. Corneal reflexes are positive bilaterally. Facial strength and symmetry was normal bilaterally. Hearing seems normal bilaterally. Palate moves well without asymmetry. There is normal sternocleidomastoid and trapezius (shoulder shrug) strength bilaterally. Tongue is midline with good strength bilaterally. Neck has a full range of motion without discomfort. There are no cervical bruits bilaterally. gait was not tested but stance sitting in the chair is normal With outstretched arms there is no drift. There are no resting, postural, or action tremors. There is no ataxia with finger to nose testing. There is good facility in the hands. No other abnormal involuntary movements are noted. Motor strength is 5/5 diffusely in the arms bilaterally including deltoids, biceps, triceps, brachioradialis, wrist flexors and extensors, bistro attendant, and intrinsic hand muscles. Motor strength is 5/5 diffusely in the legs bilaterally including hip flexors, quadriceps, hamstrings, gastrocnemius, tibialis anterior, tibialis posterior, and Peroneii muscles. Toe extensors are normal and there is good bulk in the extensor digitorum brevis muscles bilaterally. The limbs have good tone without rigidity or spasticity. There is no atrophy noted in the muscles. Muscle bulk is normal, there is no tenderness to palpation, no myotonia to percussion, and no fasciculations seen. Sensory examination is intact to touch and pin throughout all 4 limbs diffusely. Reflexes are 2/4 in the biceps, triceps, brachioradialis, quadriceps, and Achilles tendons bilaterally. There is no clonus bilaterally. Results & Data Vital Signs (Past 12 Hours) Vital Signs Temp Pulse Pulse Resp BP Pulse Ox O2 Del Method 10/07/22 07:14 37.0 C 44 L 18 123/79 97 Room Air 10/07/22 03:02 36.6 C 50 L 18 144/81 H 97 Room Air 10/06/22 23:09 57 L 10/06/22 23:05 36.8 C 80 18 145/96 H 99 Room Air PG Care Time/CCT Total # of Minutes Spent Total Time Spent with Patient: Total time spent is greater than 50% in coordination of care (as documented) at patient's floor/unit and/or counseling patient: Coding Level of Care Code 78036 INT INP/OBS CARE 3/75MIN Diagnoses Stroke-like symptoms R29.90 HTN (hypertension) I10 Hypomagnesemia E83.42 Time Spent (min) 75
--- NOTE | 2022-10-07 15:19 | Discharge Summary ---
Date of Service October 07, 2022 Admission HPI Per Admitting Provider 62 YOM that is currently residing at [facility] residential facility. He reports feeling well until last night- and even went for a run yesterday (10/05/22) Patient was brought in to the [facility] today by [facility] guards for reports of new onset right sided facial droop and right sided weakness. Patient presented to the [facility] hypertensive as well >200. Patient was stroke alerted and had CT scan of head as well as CTA of the head and neck performed. He was deemed not a candidate for TNKase secondary to time last known well. Overall the patient reports that he noticed himself becoming more weak last evening and this morning noticed his right side of his face tingling and twitching. He also notes that he had weakness and decreased sensation to his right leg. The weakness and sensation changes to his right leg and arm- he reports as starting last evening. Patient reports that he has had a stroke ~ 2 years ago and has had MRI and imaging prior. CUrrently patient is with right facial droop, right arm and right leg weakness, decreased sensation on right arm and leg, and ataxia. He has electrolyte derangements on his BMP as well. Will admit patient for continued stroke work up, treat his electrolyte disorders, obtain ECHO and follow for any seizure like activity. Patient CODE Status: FULL COVID: NEGATIVE Principal Diagnosis TIA Discharge Exam General: awake, alert, no apparent distress Head: Normocephalic, atraumatic Neuro: AAO x 3, speech clear and appropriate, right sided facial droop, PEERLA, peripheral vision intact, decreased sensation on right arm and leg, strength upper 5/5 bilaterally, 4/5 on lower with right leg- being weaker- however able to hold in air for 5 seconds with no drift, + ataxia with heel to coe and finger to nose- NIHSS- 4 Chest: equal rise and fall of the chest, no accessory muscle use, no heaves or thirlls, Clear to auscultation, on room air, Cardiac: Regular rate and rhythm, telemetry reviewed- NSR, skin warm dry, cap refill <3 seconds, peripheral pusles +2 no JVD, no murmur, no JVD, no edema GI: NABS x 4 quadrants, soft, nontender to palpation, no rebound, guarding or tenderness : Spontaneously voiding, no pain, no CVA tenderness, Extremities: Normal inspection, no peripheral edema or erythema, calfs nontender to palpation Psych: Normal mood and affect Skin: no rash or erythema Discharge Data Allergies Allergy/AdvReac Type Severity Reaction Status Date / Time No Known Allergies Allergy Unverified 10/06/22 09:38 Consultations 10/06/22 10:14 ED Decision to Admit Stat 10/07/22 08:05 Consult Neurology Routine Ordered Studies 10/06/22 08:11 CT angio head w con Stat CT angio neck with con Stat CT head/brain wo con Stat 10/06/22 10:24 MRI Brain [MR brain wo con] Routine 10/06/22 21:34 US venous doppler LE BI Routine Hospital Course (1) Stroke-like symptoms: Acute onset with history of previous CVA reported by patient Likely TIA - Not a thrombolytic candidate secondary to time of onset - CT, CTA of head and neck negative for LVOT or stenosis or bleed - obtain MRI: this was negative. - obtain ECHO with bubble study: showed a ASD; Neuro did not feel this to be embolic. - Permissive HTN - Telemetry overnight evaluate for dysrhythmia - Dysphagia screening and then ADAT - PT/OT consultation - Continue with ASA --symptoms improved with magnesium replacement. - Continue with neurological examinations -Given that blood pressure improved only on Norvasc, will hold off enalapril. May consider increasing amlodipine, or resuming brianna-inhibitor if BP is elevated. Will discharge patient on plavix. (2) Hypomagnesemia: Replete follow other electrolytes (3) HTN (hypertension): Allow for permissive HTN await telestroke consultation recommendations - Received Hydralazine in EMD with appropriate response (4) DMII (diabetes mellitus, type 2): Insulin sliding scale - Advance diet to carb consistent once passes swallow screen - CF 20 with no carb coverage- adjust to keep BG <180 (5) HLD (hyperlipidemia): Continue statin- lipid panel in morning- adjust therapy as warranted Total Time Total Time Spent Total Time Spent (In Minutes): 35 Discharge Plan Discharge Items [facility]position[facility] Reason For Visit: STROKE LIKE SYMPTOMS Discharge Diagnosis: Stroke like symptoms Activity: Resume your previous activity Non-emergency contact: Primary Care Provider Call non-emergency contact if: you have any medication questions Follow-up/Referrals: Arnold Farooq DO [Primary Care Provider] - Diet: Carb Consistent or DM2 and Heart Healthy Addtl Attending Provider Instructions: Recommend followu with Cardiology to discuss KIMO for ASD. Recommend followup with Neurology within 1 month. Recommend keeping a diary of his blood pressure readings. IF pressures rise may consider adding a BP med or increase dose of amlodipine. Pending Studies at Discharge: No Stand-Alone Forms: My [facility] [email or web address] Skilled Items Patient informed of condition?: Yes Discharge Level of Care: Skilled Communicable Disease: No Discharge Prognosis: Stable Lines: None Urinary Catheter: No Medications and DC Order Prescriptions: New clopidogrel [Plavix] 75 mg tablet 75 mg PO DAILY Qty: 30 0RF Continued Aspirin Low-Strength 81 mg tablet 81 mg PO DAILY amlodipine [Norvasc] 2.5 mg Tablet 2.5 mg PO DAILY simvastatin [Zocor] 20 mg Tablet 30 mg PO HS metformin 1,000 mg Tablet 1,000 mg PO BID clotrimazole [Lotrimin AF (clotrimazole)] 1 % Cream 1 applic TOPICAL BID Discontinued enalapril maleate [Vasotec] 10 mg Tablet 10 mg PO DAILY Discharge Orders: Discharge Order (Routine); Ordered 10/07/22 Ordered By: David Maurer Admission Data Admit Date/Time: 10/07/22 08:10 Attending Provider: David Maurer Admit Provider: Srinivasa Victoria Primary Care Provider: Arnold Farooq Other Providers: Srinivasa Victoria ; Yuniel Berg Other Interventions: Discharge Summary Assessment (RN) Last Done: 10/07/22 17:41 Coding Level of Care Code 52689 INP/OBS DISCH >30 MIN Diagnoses Stroke-like symptoms R29.90 Hypomagnesemia E83.42 HTN (hypertension) I10 DMII (diabetes mellitus, type 2) E11.9 HLD (hyperlipidemia) E78.5
[2022-10-07] MEDS ORDERED: STROKE PATIENT DISCHARGE STA (15:36)
[2022-10-08 09:36] LABS: Estimated Average Glucose 286 mg/dl; Hemoglobin A1C 11.6 % (4.5-5.6)
--- NOTE | 2022-10-08 23:02 | Electrocardiogram Report ---
Test Reason : Blood Pressure : / mmHG Vent. Rate : 055 BPM Atrial Rate : 055 BPM P-R Int : 200 ms QRS Dur : 102 ms QT Int : 420 ms P-R-T Axes : 063 021 040 degrees QTc Int : 401 ms Sinus bradycardia Possible Left atrial enlargement Minimal voltage criteria for LVH, may be normal variant Septal infarct , age undetermined Abnormal ECG No previous ECGs available Confirmed by Gustabo Hale ([id number]) on 10/08/2022 11:02:11 PM Referred By: Confirmed By:Gustabo Hale
== END 2022-10-07 17:43 | DRG 69 ==
LOC: ED 08:07 → 2E 08:07 → SUATTDRO 10:32 → 2E 11:09